=== PATIENT | female | born 1930 | race Two or more races ===

== ENCOUNTER 2017-02-14 15:28 | Emergency (ER) | payer SELFPAY ==
[~2017-02-14] VITALS: Ht 162.6 cm; Wt 59.9 kg
[2017-02-14 16:00] VITALS: BP 131/60
[2017-02-14] MEDS ORDERED: ZITHROMAX250 MG ORAL (16:27)
[2017-02-14] MEDS ORDERED: ACETAMINOPHEN-1 EAC1 ORAL (16:27)
--- NOTE | 2017-02-14 19:48 | Emergency Room Report ---
History of Present Illness General Chief Complaint: Flu Like Symptoms Source: Patient Present Illness [facility] The patient is an 87-year-old female accompanied by son for possible pneumonia. The patient states that she has been experiencing coughing and chills for the past month. She denies any pain. She denies fever. She states that she has had pneumonia in the past and this feels the same. She does admit to fatigue. She denies any other symptoms including N, V, F, abd pain, CP, SOB, rash Allergies: Coded Allergies: No Known Allergies (Unverified , 02/14/17) Patient History Past Medical History: see triage record Pertinent Family History: none Reviewed Nursing Documentation: PMH: Agreed, PSxH: Agreed Nursing Documentation-PMH Past Medical History: No Stated History Review of Systems All Other Systems: negative except mentioned in HPI Physical Exam Vital Signs Date Time Temp Pulse Resp B/P Pulse Ox O2 Delivery O2 Flow Rate FiO2 02/14/17 15:33 98.1 94 16 131/60 95 Room Air Sp02 EP Interpretation: reviewed, normal General Appearance: no apparent distress, alert, GCS 15, non-toxic Head: normocephalic, atraumatic Eyes: bilateral eye PERRL, bilateral eye normal inspection ENT: hearing grossly normal, normal pharynx, no angioedema, normal voice Neck: full range of motion, supple/symm/no masses Respiratory: normal inspection, no accessory muscle use, crackles - RLL, speaking full sentences Cardiovascular #1: regular rate, rhythm, no edema Gastrointestinal: normal bowel sounds, non tender, soft, non-distended, no guarding, no rebound Genitourinary: normal inspection, no CVA tenderness Musculoskeletal: back normal, gait/station normal, normal range of motion, non- tender Neurologic: alert, oriented x3, responsive, motor strength/tone normal, sensory intact, speech normal Psychiatric: judgement/insight normal, memory normal, mood/affect normal, no suicidal/homicidal ideation Skin: normal color, no rash, warm/dry, well hydrated Lymphatic: no adenopathy Medical Decision Making PA Attestation Dr. Brown is my supervising physician. Patient management was discussed with my supervising physician Diagnostic Impression: Primary Impression: Pneumonia Qualified Codes: J18.1 - Lobar pneumonia, unspecified organism ER Course The patient is an 87-year-old female accompanied by son for possible pneumonia Differential diagnosis include but not limited to pharyngitis, sinusitis, AOM, bronchitis, PNA, COPD, among others PE: afebrile. NAD HEENT unremarkable Lungs: RLL crackles. Otherwise unremarkable CXR shows effusion of the RLL Due to CURB65 criteria, I encouraged the patient to be admitted. The patient is otherwise healthy and active and has refused. She will be under the direct care of her children at home. The patient is discharged home with a prescription for azithromycin and Tylenol #3. She is to follow up with primary doctor. ER precautions are given Chest X-Ray Diagnostic Results Chest X-Ray Diagnostic Results : Chest X-Ray Ordered: Yes # of Views/Limited/Complete: 1 View Indication: Other - cough EP Interpretation: Yes Interpretation: other - effusion of the RLL Interpreting ER Provider: Dr. Brown PA Scribe Text I am acting as scribe for my supervising physician. My supervising physician's interpretation of the chest xray is that there is an effusion of the RLL Last Vital Signs Date Time Temp Pulse Resp B/P Pulse Ox O2 Delivery O2 Flow Rate FiO2 02/14/17 16:34 98.1 94 16 131/60 95 Room Air Status: improved Disposition: HOME, SELF-CARE Condition: Improved Scripts Azithromycin* (ZITHROMAX*) 250 Mg Tablet 250 MG ORAL DAILY, #6 TAB 0 Refills Take two tables once daily for 1 day, then one tablet once daily for 4 days. Prov: TERZIAN,FRANNY P.A. 02/14/17 Acetaminophen With Codeine (T#3) (TYLENOL #3 TAB*) Y Tab 1 TAB ORAL Q6HR Y for For Pain, #15 TAB Prov: TERZIAN,FRANNY P.A. 02/14/17 Referrals: NOT CHOSEN [facility]/,REFERRING (PCP) Patient Instructions: Community-Acquired Pneumonia, Adult Additional Instructions: I discussed my findings with the patient and her son. All questions and concerns have been answered. Treatment and medication compliance have been addressed. I advised the patient that they need to follow up with PMD in 3-5 days. Return to ED if pain remains or worsens, cough worsens or remains, you notice blood in your sputum, you notice wheezing, you experience a fever, or if needed for any reason. Patient verbalized understanding of discharge instructions. FRANNY PORTILLO Feb 14, 2017 19:48
--- NOTE | 2017-02-15 12:38 | Diagnostic Imaging Report ---
Indication: Cough Comparison: None A single view chest radiograph was obtained. Findings: There is an infiltrate at the right lung base. Findings suspicious for pneumonia. Please correlate clinically. Heart size is normal. The bones are osteopenic. Impression: Right basal infiltrate. Pneumonia suspected
== END 2017-02-14 17:00 | disposition home or self-care (01) ==
LOC: EMR 16:42
DX: J18.9 Pneumonia, unspecified organism (principal)
CPT/HCPCS: 71010; 99284

== ENCOUNTER 2017-02-20 14:14 | Inpatient (IN) | payer MEDICAID ==
[~2017-02-20] VITALS: Ht 157.5 cm; Wt 63.5 kg
[~2017-02-20 14:14] MED LIST: ACETAMINOPHEN-1 EAC1 ORAL; ZITHROMAX250 MG ORAL
[2017-02-20] MEDS ORDERED: NKM (14:33)
[2017-02-20] MEDS ORDERED: Ipratropium 0.02% Inh Soln 2.5ml UD HHN ONE (15:15)
[2017-02-20] MEDS ORDERED: Solu-MEDROL 125mg Inj IVP ONE (15:15)
[2017-02-20] MEDS: Albuterol ud Inhalation HHN SCH ×3 (15:24→15:53)
[2017-02-20 15:41] LABS: EOSINOPHILS % (AUTO) 1.7 % (0.0-3.0); LYMPHOCYTES % (AUTO) 37.7 % (20.0-45.0); MEAN CORPUSCULAR HEMOGLOBIN 22.4 PG (27.0-31.0); MEAN CORPUSCULAR HGB CONC 30.7 G/DL (32.0-36.0); MEAN CORPUSCULAR VOLUME 73 FL (80-99); MEAN PLATELET VOLUME 5.7 FL (6.5-10.1); MONOCYTES % (AUTO) 8.5 % (1.0-10.0); NEUTROPHILS % (AUTO) 51.1 % (45.0-75.0); PLATELET COUNT 273 K/UL (150-450); RED BLOOD COUNT 4.83 M/UL (4.20-5.40); RED CELL DISTRIBUTION WIDTH 11.8 % (11.6-14.8); WHITE BLOOD COUNT 11.8 K/UL (4.8-10.8)
[2017-02-20 16:00] VITALS: BP 112/66
[2017-02-20 16:01] LABS: TROPONIN I < 0.30 ng/mL (<=0.30)
[2017-02-20 16:03] LABS: ALANINE AMINOTRANSFERASE 24 U/L (3-33); ALBUMIN/GLOBULIN RATIO 1.1 (1.0-2.7); ANION GAP 11 (5-15); ASPARTATE AMINO TRANSFERASE 32 U/L (5-40); CALCIUM 9.1 mg/dL (8.6-10.2); CARBON DIOXIDE 26 mEQ/L (20-30); CHLORIDE 102 mEQ/L (98-107); CREATININE 0.7 mg/dL (0.5-0.9); HEMOLYSIS 0; POTASSIUM 4.5 mEQ/L (3.4-4.9); SODIUM 139 mEQ/L (135-145); TOTAL PROTEIN 6.4 g/dL (6.6-8.7)
--- NOTE | 2017-02-20 18:15 | Emergency Room Report ---
History of Present Illness General Chief Complaint: General Complaint Source: Patient Present Illness HPI The patient presents with persistent cough and dyspnea after being treated for a right-sided pneumonia. She was treated with azithromycin a five-day course. She still is having a cough and unable to sleep as the cough is keeping her awake at night. She has a long smoking history and still apparently smoking although she states she stopped 5 months ago. She never been treated with albuterol or other agents. The cough is productive of green phlegm still. She denies any chest pain vomiting. She denies other symptoms except for the cough that keeps her awake at night. According to her son, she has lost weight. No depression. Some decreased exercise capacity. No hemoptysis, night sweats. No dysuria. Allergies: Coded Allergies: No Known Allergies (Unverified , 02/14/17) Patient History Past Medical History: see triage record Social History: Reports: smoking Social History Narrative from [facility] Reviewed Nursing Documentation: PMH: Agreed, PSxH: Agreed Nursing Documentation-PMH Past Medical History: No Stated History Review of Systems All Other Systems: negative except mentioned in HPI Physical Exam Vital Signs Date Time Temp Pulse Resp B/P Pulse Ox O2 Delivery O2 Flow Rate FiO2 02/20/17 14:29 97.9 92 16 127/66 97 Room Air 02/20/17 15:26 21 Sp02 EP Interpretation: reviewed, normal General Appearance: well appearing, no apparent distress, GCS 15 Head: normocephalic Eyes: bilateral eye PERRL, bilateral eye normal inspection ENT: moist mucus membranes Neck: supple Respiratory: lungs clear, normal breath sounds Cardiovascular #1: regular rate, rhythm Cardiovascular #2: 2+ radial (R) Gastrointestinal: normal inspection, normal bowel sounds, non tender, no mass, non-distended Musculoskeletal: back normal, gait/station normal, normal range of motion Neurologic: alert, oriented x3, grossly normal Psychiatric: mood/affect normal Skin: normal inspection, warm/dry Medical Decision Making Diagnostic Impression: Primary Impression: Pneumonia Qualified Codes: J18.1 - Lobar pneumonia, unspecified organism Additional Impressions: COPD (chronic obstructive pulmonary disease) Qualified Codes: J44.0 - Chronic obstructive pulmonary disease with acute lower respiratory infection Failure of outpatient treatment ER Course Patient with dx pneumonia with persistent cough. Ddx: antibiotic failure, mechanical issue, resistent organism, COPD. Evaluation with repeat CXR, labs, EKG. Treatment with solumedrol, broader spectrum antibiotics, breathing treatments. Also consider cough suppressant. Infiltrate has worsened. Concern over possible obstructive process. CT ordered. Ct with infiltrate, not exclude mass, not obstructive, bronchiectasis. Antibiotics given. Patient improved with breathing treatments and solumedrol. Admit med Dr. Blanco. Laboratory Tests Test 02/20/17 15:20 White Blood Count 11.8 K/UL (4.8-10.8) H Red Blood Count 4.83 M/UL (4.20-5.40) Hemoglobin 10.8 G/DL (12.0-16.0) L Hematocrit 35.4 % (37.0-47.0) L Mean Corpuscular Volume 73 FL (80-99) L Mean Corpuscular Hemoglobin 22.4 PG (27.0-31.0) L Mean Corpuscular Hemoglobin Concent 30.7 G/DL (32.0-36.0) L Red Cell Distribution Width 11.8 % (11.6-14.8) Platelet Count 273 K/UL (150-450) Mean Platelet Volume 5.7 FL (6.5-10.1) L Neutrophils (%) (Auto) 51.1 % (45.0-75.0) Lymphocytes (%) (Auto) 37.7 % (20.0-45.0) Monocytes (%) (Auto) 8.5 % (1.0-10.0) Eosinophils (%) (Auto) 1.7 % (0.0-3.0) Basophils (%) (Auto) 1.0 % (0.0-2.0) Prothrombin Time 10.0 SEC (9.30-11.50) Prothrombin Time INR 1.0 (0.9-1.1) PTT 25 SEC (23-33) Sodium Level 139 mEQ/L (135-145) Potassium Level 4.5 mEQ/L (3.4-4.9) Chloride Level 102 mEQ/L (98-107) Carbon Dioxide Level 26 mEQ/L (20-30) Anion Gap 11 (5-15) Blood Urea Nitrogen 18 mg/dL (7-23) Creatinine 0.7 mg/dL (0.5-0.9) Estimate Glomerular Filtration Rate mL/min (>60) Glucose Level 106 mg/dL (74-106) Calcium Level 9.1 mg/dL (8.6-10.2) Total Bilirubin 0.3 mg/dL (0.0-1.2) Aspartate Amino Transferase (AST) 32 U/L (5-40) Alanine Aminotransferase (ALT) 24 U/L (3-33) Alkaline Phosphatase 78 U/L (35-104) Total Creatine Kinase 52 U/L (26-140) Troponin I < 0.30 ng/mL (<=0.30) Pro-B-Type Natriuretic Peptide 388 pg/mL (0-450) Total Protein 6.4 g/dL (6.6-8.7) L Albumin 3.4 g/dL (3.5-5.2) L Globulin 3.0 g/dL Albumin/Globulin Ratio 1.1 (1.0-2.7) EKG Diagnostic Results Rate: normal Rhythm: NSR ST Segments: no acute changes Rhythm Strip Diag. Results EP Interpretation: yes Rhythm: NSR, no PVC's, no ectopy Chest X-Ray Diagnostic Results Chest X-Ray Diagnostic Results : Chest X-Ray Ordered: Yes # of Views/Limited/Complete: 1 View Indication: Other EP Interpretation: Yes Interpretation: no effusion, no pneumothorax, other - worsened pneumonia from 02/14 Impression: Other Interpreting ER Provider: Electronic signature Forest Bahena MD CT/MRI/US Diagnostic Results CT/MRI/US Diagnostic Results : Imaging Test Ordered: chest Impression Impression: Bilateral bronchiectasis in the lower lobes and in the right middle lobe. Airspace disease such as pneumonia versus atelectasis in the right middle lobe. Atelectasis versus infiltrate in the lingula. Atelectasis in the right upper lobe. Enlarged subcarinal lymph node, most likely reactive. Followup suggested. Old granulomatous disease. Gallbladder sludge versus small stones. Last Vital Signs Date Time Temp Pulse Resp B/P Pulse Ox O2 Delivery O2 Flow Rate FiO2 02/21/17 01:23 103 20 100 Room Air 02/20/17 20:08 104/51 02/20/17 18:59 97.9 21 Status: improved Disposition: ADMITTED INPATIENT Condition: Serious Referrals: NOT CHOSEN [facility]/,REFERRING (PCP) Forest Bahena M.D. Feb 20, 2017 18:15
[2017-02-20] MEDS ORDERED: guaiFENesin w/Codeine 5ml Liq ud ORAL STA (18:24)
[2017-02-20] MEDS ORDERED: Albuterol ud Inhalation HHN ONE (18:30)
[2017-02-20] MEDS ORDERED: Albuterol 90mcg Inhaler 8gm INH PRN (18:45)
[2017-02-20 18:59] VITALS: BP 104/45
[2017-02-20] MEDS ORDERED: cefTRIAXone 1 GM in D5W 55 ML IVPB ONE (19:00)
[2017-02-20] MEDS ORDERED: Milk of Magnesia 30ml Ud ORAL PRN (22:45)
[2017-02-20] MEDS ORDERED: Morphine Sulfate 4mg/ml Inj IVP PRN (22:45)
[2017-02-20] MEDS ORDERED: Morphine Sulfate 2mg/ml Inj IVP PRN (22:45)
[2017-02-21] MEDS: Zolpidem 5mg tab ORAL PRN ×2 (00:02→21:32)
[2017-02-21] MEDS: DuoNeb 0.5-3(2.5)mg/3ml neb HHN SCH ×4 (01:12→19:23)
[2017-02-21 04:00] VITALS: BP 137/65
[2017-02-21] MEDS ORDERED: Zosyn 4.5gm inj ONE (05:29)
[2017-02-21] MEDS: Piperacillin/Tazobactam 4.5 GM in NS 110 ML IV SCH ×3 (05:39→22:44)
[2017-02-21 08:20] LABS: BASOPHILS % (AUTO) 0.3 % (0.0-2.0); MEAN CORPUSCULAR HEMOGLOBIN 22.3 PG (27.0-31.0); MEAN CORPUSCULAR HGB CONC 30.7 G/DL (32.0-36.0); MEAN CORPUSCULAR VOLUME 73 FL (80-99); MEAN PLATELET VOLUME 5.8 FL (6.5-10.1); MONOCYTES % (AUTO) 6.5 % (1.0-10.0); NEUTROPHILS % (AUTO) 77.2 % (45.0-75.0); PLATELET COUNT 290 K/UL (150-450); RED BLOOD COUNT 4.79 M/UL (4.20-5.40)
--- NOTE | 2017-02-21 08:26 | Diagnostic Imaging Report ---
Indication: COUGH Technique: CT scan of the chest was performed with intravenous contrast material. Continuous helical scanning was obtained with displayed 5 mm sections in axial and coronal planes. Dose: Total Dose Length Product - DLP [address] Dose Index - CTDIvol(s) 26.15 mGy. Comparison: None Findings: Examination demonstrates location in the aorta. Some small mediastinal lymph nodes are noted adjacent to the aorta but these are normal in size. Ossification is noted in subcarinal lymph nodes. Calcified hilar nodes are also noted bilaterally. There is an enlarged subcarinal lymph node. No other mediastinal adenopathy is identified. There is bronchiectasis in both lower lobes as well as bronchial wall thickening. Airspace disease is noted in the right middle lobe with bronchiectasis. A focal area of either airspace disease or atelectasis is also noted in the lingula. In addition, patchy groundglass density is noted in the right upper lobe. No mass. The pleural spaces unremarkable. There is some slightly high density material layering in the posterior aspect of the gallbladder. Impression: Bilateral bronchiectasis in the lower lobes and in the right middle lobe. Airspace disease such as pneumonia versus atelectasis in the right middle lobe. Atelectasis versus infiltrate in the lingula. Atelectasis in the right upper lobe. Enlarged subcarinal lymph node, most likely reactive. Followup suggested. Old granulomatous disease. Gallbladder sludge versus small stones. The above report is concordant with preliminary reading by [employer] . The CT scanner at [facility] is accredited by the [employer] and the scans are performed using protocols designed to limit radiation exposure to as low as reasonably achievable to attain images of sufficient resolution adequate for diagnostic evaluation.
[2017-02-21 08:34] VITALS: BP 136/81
[2017-02-21 08:35] LABS: ALANINE AMINOTRANSFERASE 22 U/L (3-33); ALBUMIN/GLOBULIN RATIO 1.1 (1.0-2.7); ANION GAP 14 (5-15); ASPARTATE AMINO TRANSFERASE 22 U/L (5-40); CALCIUM 9.1 mg/dL (8.6-10.2); CARBON DIOXIDE 22 mEQ/L (20-30); CHLORIDE 108 mEQ/L (98-107); CREATININE 0.6 mg/dL (0.5-0.9); HEMOLYSIS 0; POTASSIUM 4.3 mEQ/L (3.4-4.9); SODIUM 144 mEQ/L (135-145); TOTAL PROTEIN 6.6 g/dL (6.6-8.7)
--- NOTE | 2017-02-21 09:06 | Diagnostic Imaging Report ---
Indication: COUGH Technique: XRAY CHEST 1 V Comparison:02/14/17 Findings: There is infiltrate or volume loss in the right middle lobe obscuring the right heart border. Some patchy density is also noted in the right upper lobe and in the both lower lobes. Heart is normal in size. No pleural fluid. Impression: Patchy infiltrate or volume loss in the right middle lobe. Patchy densities in the lower lobes. This may represent atelectasis or infiltrate. Patchy infiltrate or atelectasis the right upper lobe.
[2017-02-21 12:00] VITALS: BP 135/78
--- NOTE | 2017-02-21 12:07 | History & Physical ---
History and Physical History & Physicial Hp dictated # [id number] MEKHI SALEH Feb 21, 2017 12:07
[2017-02-21] MEDS ORDERED: 1/2 NS 1000ml IV ONE (15:04)
[2017-02-21] MEDS: Promethazine/Codeine 5ml UD ORAL PRN (15:16)
[2017-02-21 16:54] VITALS: BP 114/70
--- NOTE | 2017-02-21 17:02 | History and Physical Report ---
DATE OF ADMISSION: 02/20/2017 CHIEF COMPLAINT: Cough with some sputum production. HISTORY OF PRESENT ILLNESS: This is an 85-year-old female originally from [place]. The patient is here visiting her son in [place]. She started having cough and sputum production about a week ago and her symptoms got worse. She came to the emergency room yesterday and the workup showed the patient has pneumonia and was admitted. The patient has a long history of smoking, although she said she has cut back to a few cigarettes a day. PAST MEDICAL HISTORY: She has had breast implants as well as buttock implants, otherwise she denies history of diabetes, hypertension, and specifically she denies history of lung disease before. She has now been in the hospital for COPD. MEDICATIONS: On admission, the patient was on Zithromax and Tylenol. SOCIAL HISTORY: As mentioned, the patient has known history of smoking and history of alcohol abuse. ALLERGIES: No known drug allergies. REVIEW OF SYSTEMS: Noncontributory except what was mentioned. PHYSICAL EXAMINATION: GENERAL: The patient is an elderly female, in no acute distress. VITAL SIGNS: Blood pressure is 135/78, pulse 85, respiratory rate 20, and temperature 98 degrees. HEENT: [place] conjunctivae. Anicteric sclerae. NECK: Supple. LUNGS: Clear to auscultation. HEART: S1 and S2 without murmurs or rubs. ABDOMEN: Soft and nontender. EXTREMITIES: No cyanosis or edema. LABORATORY FINDINGS: The CBC shows a WBC of 14,000, hematocrit is 34.8, hemoglobin is 10.7, and platelets 290,000. Chemistry panel shows serum sodium 144, potassium 4.3, chloride 108, BUN 15, creatinine 0.6, and blood sugar is 128. ASSESSMENT: This is an 85-year-old female, who was admitted with a diagnosis of pneumonia, right lower lobe. She likely has some underlying emphysema based on the CAT scan results of the chest. PLAN: The patient will be on IV antibiotics and bronchodilators. She was told she has to stop smoking. Oxygen p.r.n. will be prescribed. The patient will be on Phenergan with Codeine p.r.n. for cough. Case was discussed with the son in detail. Neeraj Blanco M.D. DR: IGNACIO JOB#: [id number] CC:
[2017-02-21] MEDS ORDERED: LORazepam 1mg tab ORAL PRN (19:45)
[2017-02-21 20:00] VITALS: BP 128/78
[2017-02-22] MEDS: DuoNeb 0.5-3(2.5)mg/3ml neb HHN SCH ×3 (01:00→13:12)
[2017-02-22 04:00] VITALS: BP 119/64
[2017-02-22] MEDS: Piperacillin/Tazobactam 4.5 GM in NS 110 ML IV SCH ×2 (05:20→13:56)
[2017-02-22 08:58] VITALS: BP 136/67
[2017-02-22] MEDS: Promethazine/Codeine 5ml UD ORAL PRN ×2 (09:26→17:47)
[2017-02-22 12:41] VITALS: BP 140/62
[2017-02-22] MEDS ORDERED: AUGMENTIN 875-1 EAC1 ORAL (14:51)
[2017-02-22] MEDS ORDERED: ADVAIR 250-501 EACH INH (14:51)
--- NOTE | 2017-02-22 14:57 | Consultation ---
Consult Note Assessment/Plan Dc dictated # [id number] MEKHI SALEH Feb 22, 2017 14:56
[2017-02-22 16:09] VITALS: BP 140/61
[2017-02-22] MEDS ORDERED: D5 1/2NS 1000ml IV ONE (19:14)
[2017-02-22] MEDS ORDERED: Tubing IV Secondary IV ONE (19:14)
--- NOTE | 2017-02-22 23:46 | Discharge Summary ---
DATE OF ADMISSION: 02/20/2017 DATE OF DISCHARGE: 02/22/2017 CHIEF COMPLAINT: Cough, shortness of breath, and sputum production. HISTORY OF PRESENT ILLNESS: This is an 85-year-old, female, who was admitted with above symptoms and diagnosis of pneumonia. The patient also has a long history of smoking and it was felt that she had also chronic obstructive pulmonary disease. HOSPITAL COURSE: The patient was started on IV antibiotics. Bronchodilators via hand-held nebulizer, p.r.n. oxygen and cough suppressants. Her condition improved. She wanted go home. So, she was discharged on oral Augmentin as well as Advair and she will follow with her primary medical doctor. DISCHARGE DIAGNOSES: 1. Pneumonia. 2. Chronic obstructive pulmonary disease exacerbation. Neeraj Blanco M.D. DR: DICK JOB#: [id number] CC:
--- NOTE | 2017-02-25 01:00 | Cardiology Report ---
APPROVED REPORT EKG Measurement Heart [id number] Normal sinus rhythm Normal ECG
== END 2017-02-22 19:15 | disposition home or self-care (01) | DRG 139 ==
LOC: EDBD 14:14 → EMR 15:15 → EDBEDREQ 17:52 → 4E 18:24
DX: J18.9 Pneumonia, unspecified organism (principal); E11.8 Type 2 diabetes mellitus with unspecified complications; J44.1 Chronic obstructive pulmonary disease with (acute) exacerbation; J43.9 Emphysema, unspecified; I10 Essential (primary) hypertension; Z87.891 Personal history of nicotine dependence
CPT/HCPCS: 36415; 71010; 71260; 80053; 82550; 83880; 84484; 85025; 85610; 85730; 87040; 93005; 94640; 94664; J7620